=== PATIENT | female | born 1960 | race Caucasian/White ===

== ENCOUNTER → 2020-01-20 | Outpatient (CLI) | payer BC ==
--- NOTE | 2020-01-20 09:05 | BD ---
EXAMINATION TYPE: Axial Bone Density DATE OF EXAM: 01/20/2020 COMPARISON: NONE CLINICAL HISTORY: 59 YR OLD FEMALE...ICD-10 CODE: N95.1 POST MENOPAUSAL Height: 63.3 Weight: 367 FRAX RISK QUESTIONS: Glucocorticoids (More than 3mos): YES (Ex: prednisone, prednisolone, methylprednisolone, dexamethasone, and hydrocortisone). History of Fracture in Adulthood: YES Secondary Osteoporosis: YES 1. Type 1 Diabetes: YES 3. Menopause before 45: YES, AT 44 Current Tobacco Use: NOT FOR 10 YRS RISK FACTORS HISTORY OF: History of Wrist Fracture: HX OF RT WRIST FX....> AGE OF 51 Postmenopausal woman: YES, AT ABOUT 44 YRS OLD Take estrogen and/or progesterone medications: YES, FOR ABOUT 2-3 YRS IN THE PAST....NONE NOW Lost more than 2 inches in height since high school: YES Hyperparathyroidism: NO Adrenal Insufficiency: NO MEDICATIONS: Prednisone or other steroids: ASTHMA INHALERS, AND STEROIDS FOR ABOUT 10+ YRS Thyroid Medications: YES, ON AND OFF SYNTHROID, RIGHT NOW OFF, ON FOR YR TILL RECENTLY Additional Medications: BP MEDS, XANAX , CELEXA, INSULIN AND ORAL DIABETIC MEDS, REFLUX MEDS, VIT D Additional History: HYPERTENSION, DIABETIC, REFLUX, CHOLESTEROL BUT CANNOT TAKE MEDS, RT KNEE REPLACE MENT, OSTEOARTHRITIS, RENAL EXAM MEASUREMENTS: Bone mineral densitometry was performed using the [employer] System. Bone mineral density as measured about the Lumbar spine is: ----- L1-L4(G/cm2): 1.410 T Score Values are as follows: ----- L1: 1.9 ----- L2: 1.4 ----- L3: 1.6 ----- L4: 2.7 ----- L1-L4: 1.9 Bone mineral density FIRST DEXA SCAN......BASELINE STUDY Bone mineral density about the R hip (g/cm2): 0.923 Bone mineral density about the L hip (g/cm2): 0.938 T Score values are as follows: -----R Neck: -1.5 -----L Neck: -1.5 -----R Total: -0.7 -----L Total: -0.6 Bone mineral density BASELINE STUDY FRAX%s: THERE IS A 15.2% CHANCE FOR A MAJOR OSTEOPOROTIC FX AND A 1.3% FOR HIP.....PROBABILITY FOR FX IN 10 YRS TIME IMPRESSION: Osteopenia (T Score between -2.5 and -1) at the femoral neck level of both hips. There is slightly increased risk of fracture and the patient may be considered for treatment. Re-Screen 2-5 years. NOTE: T-SCORE=SD OF THE YOUNG ADULT MEAN.
--- NOTE | 2020-01-20 09:35 | MM ---
Reason for exam: screening (asymptomatic). Last mammogram was performed 7 years and 1 month ago. History: Patient is postmenopausal. Family history of premenopausal breast cancer in aunt at age 46 and premenopausal breast cancer in cousin at age 46. Took hormonal contraceptives for 2 months. Took estrogen for 4 years beginning at age 41. Physical Findings: A clinical breast exam by your physician is recommended on an annual basis and results should be correlated with mammographic findings. MG Screening Mammo w CAD Bilateral CC and MLO view(s) were taken. Prior study comparison: December 22, 2012, bilateral digital screening mammo w/CAD. January 25, 2011, [facility] DIGITAL RIGHT MAMMOGRAM w/CAD. There are scattered fibroglandular densities. Finding: There are indeterminate heterogeneous, grouped/clustered calcifications in the outer quadrant of the left breast 11cm from the nipple. New finding since December 22, 2012. ASSESSMENT: Incomplete: need additional imaging evaluation, BI-RAD 0 RECOMMENDATION: Special view mammogram of the left breast. [facility] will attempt to contact patient to return for supplemental views.
== END | disposition home or self-care (01) ==
LOC: RADMAMWWP 07:36
PROVIDERS: ATTEND Family Medicine
DX: Z12.31 Encounter for screening mammogram for malignant neoplasm of breast (principal); Z13.820 Encounter for screening for osteoporosis; M85.89 Other specified disorders of bone density and structure, multiple sites; N95.1 Menopausal and female climacteric states
CPT/HCPCS: 77067; 77080

== ENCOUNTER → 2020-02-01 | Outpatient (CLI) | payer BC ==
--- NOTE | 2020-02-02 07:14 | MM ---
Reason for exam: additional evaluation requested from abnormal screening. Last mammogram was performed less than 1 month ago. History: Patient is postmenopausal. Family history of premenopausal breast cancer in aunt at age 46 and premenopausal breast cancer in cousin at age 46. Took hormonal contraceptives for 2 months. Took estrogen for 4 years beginning at age 41. Physical Findings: Nurse did not find any significant physical abnormalities on exam. MG Work Up Mamm w CAD LT CC with magnification, ML with magnification, and ML view(s) were taken of the left breast. Prior study comparison: December 22, 2012, bilateral digital screening mammo w/CAD. January 25, 2011, [facility] DIGITAL RIGHT MAMMOGRAM w/CAD. There are scattered fibroglandular densities. Grouped course and heterogeneous calcifications posterior lower outer quadrant, new from 2010. Biopsy recommended. These results were verbally communicated with the patient and result sheet given to the patient on 02/01/20. ASSESSMENT: Suspicious, BI-RAD 4 RECOMMENDATION: Stereotactic core biopsy of the left breast. Given the patient's weight, likely will need upright 3D mammogram biopsy. Called Dr. Paredes's office with mammographic findings. PRELIMINARY REPORT CALLED AND FAXED TO DR. PAREDES ON 02/02/20.
== END | disposition home or self-care (01) ==
LOC: RADMAMWWP 08:41
PROVIDERS: ATTEND Family Medicine
DX: R92.8 Other abnormal and inconclusive findings on diagnostic imaging of breast (principal)
CPT/HCPCS: 77065

== ENCOUNTER → 2022-01-17 | Outpatient (CLI) | payer BC ==
--- NOTE | 2022-01-17 21:28 | SFUN ---
SLEEP CENTER FOLLOW UP NOTE DATE OF SERVICE: 01/17/2022 This 61-year-old lady has been followed in Sleep Center for treatment of obstructive sleep apnea-hypopnea syndrome. Recently the patient had BiPAP titration and she received a new BiPAP unit. Today is her first visit after she received the new BiPAP equipment. Previously the patient was also on treatment with oxygen. I discussed results of the sleep study with the patient in detail. Her respiration normalized on BiPAP, but she still had some episodes of oxygen desaturation during titration. During the night of titration, oxygen level was below normal range for 41 minutes. The patient is able to use her BiPAP equipment every night. I checked her BiPAP unit. Pressure is 17/12 cm of water. Usage is 100% of nights for more than 4 hours. Average usage is 13 hours 59 minutes. Patient explained that she is using her machine at night and also during the day when she takes naps in the middle of the day. [place] Sleepiness Scale today is 3. Reading from the machine showed leak 21.6 L/minute, which is borderline, and apnea- hypopnea index only 1.0, which is normal. MEDICATIONS: 1. Lisinopril 20 mg once a day. 2. Metformin 1000 mg twice a day. 3. Symbicort inhaler 2 puffs twice a day. 4. Ropinirole 0.5 mg at bedtime. 5. Xanax 0.25 mg three times a day. 6. Furosemide 40 mg twice a day. 7. Albuterol inhaler. 8. Singulair 10 mg at night. 9. Lantus insulin. PHYSICAL EXAMINATION: GENERAL: Pleasant patient in no distress. VITAL SIGNS: BP 174/97, HR 100, RR around 20, weight 419, temperature 97.5, oxygen saturation at room air in sitting position 92%. HEENT: PERRLA, EOMI, evaluation of oropharynx showed tongue protrudes midline. Extremely low position of soft palate; Mallampati IV. NECK: Supple, no JVD. Thyroid is not palpable. Neck measures 21-1/2 inches in circumference. LUNGS: Clear to percussion and to auscultation. Good air exchange. No wheezing or rhonchi. HEART: S1, S2 regular. No murmurs, gallops, or rubs. ABDOMEN: Obese. EXTREMITIES: No clubbing or cyanosis. WOOD ENGRAVER: Awake, alert, and oriented X3. Cranial nerves 2 to 7 intact. There is no fasciculation or atrophy. noted. No focal deficits observed. IMPRESSION: 1. Obstructive sleep apnea-hypopnea syndrome. Patient demonstrated 100% compliance with BiPAP treatment. Normal respiration by apnea-hypopnea index while using BiPAP. Apnea-hypopnea index 1.0. 2. Previously patient was on treatment with oxygen during sleep. During titration procedure, oxygen level was below normal for 41.1 minutes, possibly secondary to COPD and morbid obesity. 3. Morbid obesity. 4. Diabetes mellitus. 5. Asthma. 6. Anxiety. 7. Status post tonsillectomy. 8. Status post hysterectomy. 9. Status post right knee replacement. 10.Status post bilateral cataract surgery. PLAN: 1. Patient will continue treatment with BiPAP every night for the whole night. 2. Prescription for additional oxygen 2 L/minute during sleep with BiPAP. 3. Aggressive losing weight program. 4. Sleep hygiene with regular time in bed for at least 7-1/2 to 8 hours. 5. No driving if feeling any sleepiness. Thank you very much for allowing me to participate in the management of your patient. Sincerely, Gerard Walker MD, PhD, FAASM Diplomat of [place] [employer] Sleep Medicine Board of [place] [employer] Charging Board Operator of [facility] [place] [facility]OD[facility] / [place]: [id number] /
== END ==
LOC: SLEEP 13:32
PROVIDERS: ATTEND Internal Medicine
DX: G47.33 Obstructive sleep apnea (adult) (pediatric) (principal); Z99.89 Dependence on other enabling machines and devices; E66.01 Morbid (severe) obesity due to excess calories; J45.909 Unspecified asthma, uncomplicated; E11.9 Type 2 diabetes mellitus without complications; F41.9 Anxiety disorder, unspecified; Z90.09 Acquired absence of other part of head and neck; Z90.711 Acquired absence of uterus with remaining cervical stump; Z96.651 Presence of right artificial knee joint; Z98.41 Cataract extraction status, right eye; Z98.42 Cataract extraction status, left eye; Z79.4 Long term (current) use of insulin; Z79.84 Long term (current) use of oral hypoglycemic drugs; Z79.51 Long term (current) use of inhaled steroids; Z88.1 Allergy status to other antibiotic agents; Z88.5 Allergy status to narcotic agent; Z88.2 Allergy status to sulfonamides; Z88.8 Allergy status to other drugs, medicaments and biological substances

== ENCOUNTER → 2022-04-29 | Outpatient (CLI) | payer BC ==
--- NOTE | 2022-04-30 08:45 | XR ---
EXAMINATION TYPE: XR chest 2V DATE OF EXAM: 04/29/2022 COMPARISON: NONE TECHNIQUE: PA and lateral views submitted. HISTORY: Shortness of breath FINDINGS: The lungs are clear and there is no pneumothorax, pleural effusion, or focal pneumonia. Hypertrophi c change of the spine with cardiomegaly. Arthropathy of the shoulders. Subsegmental changes along the right lung. IMPRESSION: 1. Subsegmental changes along the right lung base could represent atelectasis or prominent pericardia l fat pad. Correlate clinically to exclude early infiltrate
== END | disposition home or self-care (01) ==
LOC: RADMRIMAIN 18:47
PROVIDERS: ATTEND Family Medicine
DX: R07.9 Chest pain, unspecified (principal)
CPT/HCPCS: 71046

== ENCOUNTER 2022-10-15 17:02 | Observation (INO) | payer BC ==
[2022-10-15] MEDS ORDERED: ASPIRIN 81 MG PO STA (17:06)
[2022-10-15 17:50] LABS: Basophils # (A) 0.1 k/uL (0-0.2); Basophils % (A) 1 %; Eosinophils # (A) 0.2 k/uL (0-0.7); Eosinophils % (A) 2 %; HCT 42.2 % (34.0-46.0); HGB 14.6 gm/dL (11.4-16.0); Lymphocytes # (A) 2.8 k/uL (1.0-4.8); Lymphocytes % (A) 28 %; MCH 32.5 pg (25.0-35.0); MCHC 34.7 g/dL (31.0-37.0); MCV 93.7 fL (80.0-100.0); Mean Platelet Volume 8.1; Monocytes # (A) 0.3 k/uL (0-1.0); Monocytes % (A) 3 %; Neutrophils # (A) 6.5 k/uL (1.3-7.7); Neutrophils % (A) 65 %; Platelet Count 269 k/uL (150-450); RDW 12.5 % (11.5-15.5)
[2022-10-15] MEDS ORDERED: PANTOPRAZOLE 40 MG/10 ML VIAL IVP STA (17:52)
[2022-10-15] MEDS ORDERED: FAMOTIDINE 20 MG/2 ML VIAL IV STA (17:52)
--- NOTE | 2022-10-15 18:02 | ED ---
Chest Pain HPI - General Chief Complaint: Chest Pain Stated Complaint: chest pain Time Seen by Provider: 10/15/22 17:05 Source: patient, EMS Mode of arrival: EMS Limitations: no limitations - History of Present Illness Initial Comments: Patient is a 62 year old female who went to the emergency department with a chief complaint of chest pain. Patient states the pain started at about 4 PM while watching TV. Describes the pain as intermittent episodes of sharpness and spasms in the middle of her chest. Patient had 4-5 episodes lasting just a few seconds. There is no radiation. The pain worsened with forward motion of the chest. Patient took 650 mg of aspirin. She had one episode of nausea otherwise no associated symptoms. = No lightheadedness, dizziness, palpitations, shortness of breath, vomiting. She does admit to cough and sore throat. She does mention eating gumbo for lunch today but denies history of acid reflux. She has history of hypertension, diabetes, heart failure. Reports having a normal stress test over 15 years ago. Does not recall any history of echocardiogram. 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 Family history of cardiac disease includes father with heart attack in his 60s and mother with valvular disease. Patient quit smoking tobacco 12 years ago. She denies alcohol use. Patient given nitro in the ambulance with no improvement of symptoms. - Related Data Home Medications Medication Instructions Recorded Confirmed ALPRAZolam [Xanax] 0.25 mg PO TID PRN 10/15/22 10/15/22 Albuterol Sulfate [Albuterol 2 puff INHALATION RT-Q6H PRN 10/15/22 10/15/22 Sulfate Hfa] Apple Cider Vinegar Gummy 1 cap PO PC-SUPPER 10/15/22 10/15/22 Budesonide/Formoterol Fumarate 2 puff INHALATION RT-BID 10/15/22 10/15/22 [Symbicort 160-4.5 Mcg Inhaler] Elderberry Gummy 2 cap PO PC-SUPPER 10/15/22 10/15/22 Furosemide [Lasix] 40 mg PO BID 10/15/22 10/15/22 Insulin Glargine,Hum.rec.anlog 32 unit SQ HS 10/15/22 10/15/22 [Lantus Solostar Pen] Montelukast [Singulair] 10 mg PO DAILY 10/15/22 10/15/22 Probiotic Gummy 2 cap PO PC-SUPPER 10/15/22 10/15/22 lisinopriL [Prinivil] 40 mg PO DAILY 10/15/22 10/15/22 metFORMIN HCL 500 mg PO BID 10/15/22 10/15/22 rOPINIRole HCL [Requip] 0.5 mg PO HS 10/15/22 10/15/22 Allergies Allergy/AdvReac Type Severity Reaction Status Date / Time ciprofloxacin [From Cipro] Allergy Unknown Verified 10/15/22 20:20 ciprofloxacin HCl Allergy Unknown Verified 10/15/22 20:20 [From Cipro] codeine Allergy Unknown Verified 10/15/22 20:20 sodium fluoride Allergy Unknown Verified 10/15/22 20:20 [From Phos-Flur] Sulfa (Sulfonamide Allergy Unknown Verified 10/15/22 20:20 Antibiotics) rosuvastatin [From Crestor] AdvReac Muscle Verified 10/15/22 20:20 cramps Review of Systems ROS Statement: Those systems with pertinent positive or pertinent negative responses have been documented in the HPI. ROS Other: All systems not noted in ROS Statement are negative. EKG Findings - EKG Comments: EKG Findings:: KG taken at 17:20, terminal by me. Sinus rhythm with first- degree AV block, no ST segment or T-wave abnormality. Ventricular rate 85. RI interval 220. QRS duration 103. QTc 413 Past Medical History Past Medical History: Heart Failure, Diabetes Mellitus, Hypertension, Thyroid Disorder History of Any Multi-Drug Resistant Organisms: None Reported Past Surgical History: Hysterectomy, Orthopedic Surgery, Tonsillectomy Past Psychological History: Anxiety, Depression Smoking Status: Never smoker Past Alcohol Use History: None Reported Past Drug Use History: None Reported General Exam Limitations: no limitations Head exam: Present: atraumatic, normocephalic, normal inspection Eye exam: Present: normal appearance, PERRL, EOMI. Absent: scleral icterus, conjunctival injection, periorbital swelling Neck exam: Present: normal inspection. Absent: tenderness, meningismus, lymphadenopathy Respiratory exam: Present: normal lung sounds bilaterally. Absent: respiratory distress, wheezes, rales, rhonchi, stridor Cardiovascular Exam: Present: regular rate, normal rhythm, normal heart sounds. Absent: systolic murmur, diastolic murmur, rubs, gallop, clicks GI/Abdominal exam: Present: soft, normal bowel sounds. Absent: distended, tenderness, guarding, rebound, rigid Extremities exam: Present: normal inspection, full ROM, normal capillary refill, pedal edema (1+) Neurological exam: Present: alert, oriented X3, CN II-XII intact Psychiatric exam: Present: normal affect, normal mood Skin exam: Present: warm, dry, intact, normal color. Absent: rash Course Vital Signs 10/15/22 10/15/22 10/15/22 17:10 18:14 20:04 Temperature 98.4 F Pulse Rate 89 80 76 Respiratory 18 18 18 Rate Blood Pressure 133/74 121/62 121/62 O2 Sat by Pulse 97 97 99 Oximetry Chest Pain MDM - MDM This is a 62-year-old presenting with chest pain. Patient well appearing and in no apparent distress. EKG obtained and interpreted by me which shows sinus rhythm with first-degree AV block, no ST segment or T-wave abnormality. Laboratory studies obtained. Troponin and BNP within normal limits. Chest x-ray obtained interpreted by me which shows cardiomegaly and mild pulmonary vascular congestion. Patient given Protonix and Pepcid. On reevaluation patient reports no further chest pain episodes. Results discussed with patient. Patient does have risk factors for acute coronary syndrome, will be placed in observation for trending of troponin. Case discussed with Dr. Heller who accepts admission. Cardiology on consult. Dr. Skinner is my attending. Disposition Clinical Impression: Chest pain, Nausea Disposition: ADMITTED IP TO THIS HOSP Condition: Stable
--- NOTE | 2022-10-15 18:03 | XR ---
EXAMINATION TYPE: XR chest 2V DATE OF EXAM: 10/15/2022 5:47 PM COMPARISON: Chest radiographs from 04/29/2022 TECHNIQUE: XR chest 2V Frontal and lateral views of the chest. CLINICAL INDICATION:Female, 62 years old with history of Chest Pain; FINDINGS: Lungs/Pleura: There is no evidence of pleural effusion, focal consolidation, or pneumothorax. Pulmonary vascularity: Pulmonary vascular congestion. Heart/mediastinum: Cardiomediastinal silhouette is enlarged and stable. Musculoskeletal: No acute osseous pathology. IMPRESSION: Cardiomegaly and mild pulmonary vascular congestion. Correlate with BNP for congestive heart failure.
[2022-10-15 18:05] LABS: INR 0.9 (<1.2)
[2022-10-15 18:07] LABS: Partial Thromboplastin Time 20.3 sec (22.0-30.0)
[2022-10-15 18:08] LABS: ALT 30 U/L (4-34); AST 40 U/L (14-36); African American GFR (CKD) >90 (>60 ml/min/1.73 sqM); Albumin 3.9 g/dL (3.5-5.0); Alkaline Phosphatase 128 U/L (38-126); Anion Gap 10 mmol/L; Blood Urea Nitrogen 18 mg/dL (7-17); Calcium 9.3 mg/dL (8.4-10.2); Carbon Dioxide 28 mmol/L (22-30); Chloride 104 mmol/L (98-107); Glucose 124 mg/dL (74-99); Magnesium 1.9 mg/dL (1.6-2.3); Non-African American GFR(CKD) >90 (>60 ml/min/1.73 sqM); Potassium 3.9 mmol/L (3.5-5.1); Sodium 142 mmol/L (137-145); Total Bilirubin 0.3 mg/dL (0.2-1.3); Total Protein 7.1 g/dL (6.3-8.2)
[2022-10-15] MEDS ORDERED: BENZOCAINE/MENTHOL LOZENG 1 EACH LOZENGE MUCOUS MEM PRN (18:28)
[2022-10-15] MEDS ORDERED: BENZOCAINE/MENTHOL LOZENG 1 EACH LOZENGE MUCOUS MEM STA (18:38)
[2022-10-15] MEDS ORDERED: NALOXONE 0.4 MG/ML 1 ML VIAL IV PRN (19:47)
[2022-10-15] MEDS ORDERED: ALPRAZolam 0.25 MG TAB PO PRN (21:05)
[2022-10-15] MEDS ORDERED: ALBUTEROL NEBULIZED 2.5 MG/3 ML INHALATION PRN (21:05)
[2022-10-15] MEDS: SODIUM CHLORIDE 0.9% 1,000 ML IV SCH (21:07)
[2022-10-15] MEDS ORDERED: INSULIN DETEMIR (LEVEMIR) 100 UNIT/ML SYR SQ SCH (21:15)
[2022-10-15 21:33] LABS: Glucose,Whole Blood 130 mg/dL (70-110)
[2022-10-15] MEDS: metFORMIN 500 MG TAB PO SCH (21:38)
[2022-10-16 05:10] LABS: Glucose,Whole Blood 128 mg/dL (70-110)
[2022-10-16] MEDS ORDERED: SYMBICORT 160-4.5 MCG INHALER INHALATION SCH (08:00)
[2022-10-16] MEDS ORDERED: DOBUTamine DRIP for NUC MED 500 MG in DEXTROSE/WATER 1 250ML.BAG IV PRN (08:14)
[2022-10-16] MEDS ORDERED: DEXTROSE 50% SYRINGE 50 ML IVP PRN ×2 (08:49)
--- NOTE | 2022-10-16 08:49 | P.HPIM ---
History of Present Illness H&P Date: 10/16/22 Chief Complaint: Chest pain with shortness of breath. This is a 62-year-old white female with the complaints of significant chest pain yesterday had no radiation but there is element of substernal pain. Question some nausea but no diaphoresis stated. She's not had symptoms like this. Mother with valvular heart disease who at age 79 and she is a nonsmoker. She denies any significant ethanol or substance abuse. Initial enzymatic workup is negative. Lamp Replacer consulted. Review of Systems Constitutional: Denies chills, Denies fever Eyes: denies blurred vision, denies pain Ears, nose, mouth and throat: Denies headache, Denies sore throat Cardiovascular: Reports as per HPI Respiratory: Denies cough Gastrointestinal: Denies abdominal pain, Denies diarrhea, Denies nausea, Denies vomiting Genitourinary: Reports as per HPI Integumentary: Denies pruritus, Denies rash Neurological: Denies numbness, Denies weakness Past Medical History Past Medical History: Heart Failure, Diabetes Mellitus, Hypertension, Thyroid Disorder History of Any Multi-Drug Resistant Organisms: None Reported Past Surgical History: Hysterectomy, Orthopedic Surgery, Tonsillectomy Additional Past Surgical History / Comment(s): cataract sx both eyes Past Psychological History: Anxiety, Depression Smoking Status: Never smoker Past Alcohol Use History: None Reported Past Drug Use History: None Reported Medications and Allergies Home Medications Medication Instructions Recorded Confirmed Type ALPRAZolam [Xanax] 0.25 mg PO TID PRN 10/15/22 10/15/22 History Albuterol Sulfate [Albuterol 2 puff INHALATION RT-Q6H PRN 10/15/22 10/15/22 History Sulfate Hfa] Apple Cider Vinegar Gummy 1 cap PO PC-SUPPER 10/15/22 10/15/22 History Budesonide/Formoterol Fumarate 2 puff INHALATION RT-BID 10/15/22 10/15/22 History [Symbicort 160-4.5 Mcg Inhaler] Elderberry Gummy 2 cap PO PC-SUPPER 10/15/22 10/15/22 History Furosemide [Lasix] 40 mg PO BID 10/15/22 10/15/22 History Insulin Glargine,Hum.rec.anlog 32 unit SQ HS 10/15/22 10/15/22 History [Lantus Solostar Pen] Montelukast [Singulair] 10 mg PO DAILY 10/15/22 10/15/22 History Probiotic Gummy 2 cap PO PC-SUPPER 10/15/22 10/15/22 History lisinopriL [Prinivil] 40 mg PO DAILY 10/15/22 10/15/22 History metFORMIN HCL 500 mg PO BID 10/15/22 10/15/22 History rOPINIRole HCL [Requip] 0.5 mg PO HS 10/15/22 10/15/22 History Allergies Allergy/AdvReac Type Severity Reaction Status Date / Time ciprofloxacin [From Cipro] Allergy Unknown Verified 10/15/22 20:20 ciprofloxacin HCl Allergy Unknown Verified 10/15/22 20:20 [From Cipro] codeine Allergy Unknown Verified 10/15/22 20:20 sodium fluoride Allergy Unknown Verified 10/15/22 20:20 [From Phos-Flur] Sulfa (Sulfonamide Allergy Unknown Verified 10/15/22 20:20 Antibiotics) rosuvastatin [From Crestor] AdvReac Muscle Verified 10/15/22 20:20 cramps Physical Exam Vitals: Vital Signs Temp Pulse Pulse Resp BP BP Pulse Ox 10/16/22 08:19 95 10/16/22 02:12 97.5 F L 72 20 134/66 95 10/15/22 21:30 98.0 F 85 19 113/74 97 10/15/22 20:04 76 18 121/62 99 10/15/22 20:00 18 10/15/22 18:14 80 18 121/62 97 10/15/22 17:10 98.4 F 89 18 133/74 97 Intake and Output 10/15/22 10/16/22 10/16/22 22:59 06:59 14:59 Other: # Voids 1 1 Weight 183.705 kg - Constitutional General appearance: morbidly obese, no acute distress - EENT Eyes: EOMI - Neck Neck: no lymphadenopathy - Respiratory Respiratory: bilateral: CTA - Cardiovascular Rhythm: regular Heart sounds: normal: S1, S2 Abnormal Heart Sounds: no S3 Gallop - Gastrointestinal General gastrointestinal: soft, no tenderness - Integumentary Integumentary: no cellulitis - Psychiatric Psychiatric: A&O x's 3 Results CBC & Chem 7: 10/15/22 17:33 10/15/22 17:33 Labs: Abnormal Lab Results - Last 24 Hours (Table) 10/15/22 10/15/22 10/15/22 Range/Units 17:33 17:33 21:32 APTT 20.3 L (22.0-30.0) sec BUN 18 H (7-17) mg/dL Glucose 124 H (74-99) mg/dL POC Glucose (mg/dL) 130 H (70-110) mg/dL AST 40 H (14-36) U/L Alkaline Phosphatase 128 H (38-126) U/L 10/16/22 Range/Units 05:09 APTT (22.0-30.0) sec BUN (7-17) mg/dL Glucose (74-99) mg/dL POC Glucose (mg/dL) 128 H (70-110) mg/dL AST (14-36) U/L Alkaline Phosphatase (38-126) U/L Thrombosis Risk Factor Assmnt - Choose All That Apply Each Risk Factor Represents 2 Points: Age 61-74 years Thrombosis Risk Factor Assessment Total Risk Factor Score: 2 Thrombosis Risk Factor Assessment Level: Low Risk Assessment and Plan (1) Diabetes Current Visit: Yes Status: Acute Code(s): E11.9 - TYPE 2 DIABETES MELLITUS WITHOUT COMPLICATIONS SNOMED Code(s): 10333813 (2) Morbid obesity Current Visit: Yes Status: Acute Code(s): E66.01 - MORBID (SEVERE) OBESITY DUE TO EXCESS CALORIES SNOMED Code(s): 551422645 (3) Chest pain Current Visit: Yes Status: Acute Code(s): R07.9 - CHEST PAIN, UNSPECIFIED SNOMED Code(s): 67090483 (4) Nausea Current Visit: Yes Status: Acute Code(s): R11.0 - NAUSEA SNOMED Code(s): 883457383 Plan: Acute myocardial infarction ruled out. However given her anginal type symptoms she is scheduled for dobutamine stress test today. Reconcile home medications. Place on sliding scale. See orders otherwise.
[2022-10-16] MEDS ORDERED: metFORMIN 500 MG TAB PO SCH (09:00)
[2022-10-16] MEDS ORDERED: lisinopriL 20 MG TAB PO SCH (09:00)
[2022-10-16] MEDS ORDERED: MONTELUKAST 10 MG TAB PO SCH (09:00)
[2022-10-16 09:06] VITALS: RESP 16
[2022-10-16] MEDS: metFORMIN 500 MG TAB PO SCH (09:48)
[2022-10-16] MEDS: FUROSEMIDE 40 MG TAB PO SCH ×2 (09:48→17:33)
--- NOTE | 2022-10-16 10:59 | P.CRDCN ---
History of Present Illness Consult date: 10/16/22 Consult reason: chest pain History of present illness: History of present illness: This is a 62-year-old female patient with past medical history of hypertension, diabetes mellitus type 2 insulin requiring, obstructive sleep apnea compliant with BiPAP. Patient states that she had developed chest pain in the center midsternal area that felt like a twinge. It lasted only briefly and occurred every 5-10 minutes and gradually increasing in intensity until it felt like a thumping in her chest. She had 5 episodes and a half hour time frame. She told her son and he brought her to aspirin which she took. She then called EMS and came into the hospital for evaluation. She denies having any radiation of the pain, no lightheadedness or dizziness. No palpitations. She did have a little bit of nausea at first which seemed to resolve. She also felt like she was having a bit of a panic attack. She complains also of cold-like symptoms with nasal congestion, sore throat and a cough that is now productive. She also states when she sits forward or chest hurts more. She has history of having a stress test done before 2009 which was required prior to knee surgery. 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 She is concerned because her father at age 66 from a myocardial infarction. EKG is sinus rhythm with first-degree AV block CBC unremarkable. Electrolytes normal. BUN 18 and creatinine 0.71. Alkaline phosphatase 128, AST 40. Troponin negative on 3 draws. ProBNP 22.Coronavirus PCR, influenza A, influenza B all not detected. Chest x-ray reveals cardiomegaly and mild pulmonary vascular congestion. Correlate BNP for heart failure. Review Of Systems: At the time of my evaluation Constitutional: No fever, no chills. No weakness, fatigue or lethargy. EENT: No headache. No dizziness. Lungs: No shortness of breath, reports cough, reports sputum production. Reports nasal congestion, sore throat. No wheezing. Cardiovascular: No chest pain, no lower extremity edema. No palpitations. No paroxysmal nocturnal dyspnea. No orthopnea. No lightheadedness or dizziness. No syncopal episodes. Abdominal: No abdominal pain. No nausea, vomiting. No diarrhea. No constipation. No bloody or tarry stools.. No loss of appetite. Genitourinary: No dysuria.. No urinary retention. Musculoskeletal: No myalgias. No muscle weakness, no gait dysfunction, no frequent falls. No back pain. No neck pain. Integumentary: No wounds. No rash or pruritus. No unusual bruising. Neurologic: No aphasia. No facial droop. No change in mentation. No head injury. No headache. No paralysis. No paresthesia. Psychiatric: No depression. No anxiety. Endocrine: No abnormal blood sugars. Physical examination: Gen: This is a morbidly obese 62-year-old female. She is resting recliner and appears to be comfortable. Patient was utilizing her BiPAP at bedside removal for evaluation. VS: reviewed HEENT: Head is atraumatic, normocephalic. Pupils equal, round. Sclerae is anicteric. NECK: Supple. No JVD. LUNGS: Clear to auscultation. No wheezes or rhonchi. No intercostal retractions. HEART: Regular rate and rhythm. No murmur. ABDOMEN: Soft. No masses. No tenderness. EXTREMITIES: No pedal edema. No calf tenderness. NEUROLOGICAL: Patient is awake, alert and oriented x3. Assessment: Chest pain, acute coronary syndrome ruled out Hypertension Diabetes mellitus type 2 Obstructive sleep apnea with BiPAP Plan: Obtain dobutamine stress echocardiogram today Obtain 2-D echocardiogram and Doppler study to assess cardiac structure and function Continue Lasix, lisinopril Further recommendations to follow based upon clinical course If dobutamine stress echocardiogram and 2-D echocardiogram are within normal limits, patient will be cleared by cardiology for discharge home. Thank you kindly for this consultation. Nurse practitioner note has been reviewed, I agree with documented findings and plan of care. Patient was seen and examined. Past Medical History Past Medical History: Heart Failure, Diabetes Mellitus, Hypertension, Thyroid Disorder History of Any Multi-Drug Resistant Organisms: None Reported Past Surgical History: Hysterectomy, Orthopedic Surgery, Tonsillectomy Additional Past Surgical History / Comment(s): cataract sx both eyes Past Psychological History: Anxiety, Depression Smoking Status: Never smoker Past Alcohol Use History: None Reported Past Drug Use History: None Reported Medications and Allergies Home Medications Medication Instructions Recorded Confirmed Type ALPRAZolam [Xanax] 0.25 mg PO TID PRN 10/15/22 10/15/22 History Albuterol Sulfate [Albuterol 2 puff INHALATION RT-Q6H PRN 10/15/22 10/15/22 History Sulfate Hfa] Apple Cider Vinegar Gummy 1 cap PO PC-SUPPER 10/15/22 10/15/22 History Budesonide/Formoterol Fumarate 2 puff INHALATION RT-BID 10/15/22 10/15/22 History [Symbicort 160-4.5 Mcg Inhaler] Elderberry Gummy 2 cap PO PC-SUPPER 10/15/22 10/15/22 History Furosemide [Lasix] 40 mg PO BID 10/15/22 10/15/22 History Insulin Glargine,Hum.rec.anlog 32 unit SQ HS 10/15/22 10/15/22 History [Lantus Solostar Pen] Montelukast [Singulair] 10 mg PO DAILY 10/15/22 10/15/22 History Probiotic Gummy 2 cap PO PC-SUPPER 10/15/22 10/15/22 History lisinopriL [Prinivil] 40 mg PO DAILY 10/15/22 10/15/22 History metFORMIN HCL 500 mg PO BID 10/15/22 10/15/22 History rOPINIRole HCL [Requip] 0.5 mg PO HS 10/15/22 10/15/22 History Allergies Allergy/AdvReac Type Severity Reaction Status Date / Time ciprofloxacin [From Cipro] Allergy Unknown Verified 10/15/22 20:20 ciprofloxacin HCl Allergy Unknown Verified 10/15/22 20:20 [From Cipro] codeine Allergy Unknown Verified 10/15/22 20:20 sodium fluoride Allergy Unknown Verified 10/15/22 20:20 [From Phos-Flur] Sulfa (Sulfonamide Allergy Unknown Verified 10/15/22 20:20 Antibiotics) rosuvastatin [From Crestor] AdvReac Muscle Verified 10/15/22 20:20 cramps Physical Exam Vitals: Vital Signs Temp Pulse Pulse Resp BP BP Pulse Ox 10/16/22 02:12 97.5 F L 72 20 134/66 95 10/15/22 21:30 98.0 F 85 19 113/74 97 10/15/22 20:04 76 18 121/62 99 10/15/22 20:00 18 10/15/22 18:14 80 18 121/62 97 10/15/22 17:10 98.4 F 89 18 133/74 97 Intake and Output 10/15/22 10/16/22 10/16/22 22:59 06:59 14:59 Other: # Voids 1 1 Weight 183.705 kg Results 10/15/22 17:33 10/15/22 17:33 Cardiac Enzymes 10/15/22 10/15/22 10/15/22 Range/Units 17:33 17:33 23:00 AST 40 H (14-36) U/L Troponin I <0.012 <0.012 (0.000-0.034) ng/mL 10/16/22 Range/Units 01:13 AST (14-36) U/L Troponin I <0.012 (0.000-0.034) ng/mL Coagulation 10/15/22 Range/Units 17:33 PT 10.0 (9.0-12.0) sec APTT 20.3 L (22.0-30.0) sec CBC 10/15/22 Range/Units 17:33 WBC 10.0 (3.8-10.6) k/uL RBC 4.50 (3.80-5.40) m/uL Hgb 14.6 (11.4-16.0) gm/dL Hct 42.2 (34.0-46.0) % Plt Count 269 (150-450) k/uL Comprehensive Metabolic Panel 10/15/22 Range/Units 17:33 Sodium 142 (137-145) mmol/L Potassium 3.9 (3.5-5.1) mmol/L Chloride 104 (98-107) mmol/L Carbon Dioxide 28 (22-30) mmol/L BUN 18 H (7-17) mg/dL Creatinine 0.71 (0.52-1.04) mg/dL Glucose 124 H (74-99) mg/dL Calcium 9.3 (8.4-10.2) mg/dL AST 40 H (14-36) U/L ALT 30 (4-34) U/L Alkaline Phosphatase 128 H (38-126) U/L Total Protein 7.1 (6.3-8.2) g/dL Albumin 3.9 (3.5-5.0) g/dL Current Medications Generic Name Dose Route Start Last Admin Trade Name Freq PRN Reason Stop Dose Admin Albuterol Sulfate 2.5 mg 10/15/22 21:05 Albuterol Nebulized 2.5 Mg/3 Ml INHALATION RT-Q6H PRN Shortness Of Breath Alprazolam 0.25 mg 10/15/22 21:05 10/15/22 21:37 Alprazolam 0.25 Mg Tab PO 0.25 mg TID PRN Administration Anxiety Budesonide/Formoterol Fumarate 2 puff 10/16/22 08:00 Symbicort 160-4.5 Mcg Inhaler INHALATION RT-BID BALJIT Furosemide 40 mg 10/16/22 09:00 Furosemide 40 Mg Tab PO BID@0900,1600 [facility] Sodium Chloride 1,000 mls @ 75 mls/hr 10/15/22 20:00 10/15/22 21:07 Saline 0.9% IV Not Given .[id number] BALJIT Insulin Detemir 32 unit 10/15/22 21:15 12 21:38 Insulin Detemir (Levemir) 100 Unit/Ml Syr SQ 32 unit HS BALJIT Administration Lisinopril 40 mg 10/16/22 09:00 Lisinopril 20 Mg Tab PO DAILY BALJIT Metformin HCl 500 mg 10/15/22 21:16 10/15/22 21:38 Metformin 500 Mg Tab PO 500 mg BID BALJIT Administration Montelukast Sodium 10 mg 10/16/22 09:00 Montelukast 10 Mg Tab PO DAILY BALJIT Naloxone HCl 0.2 mg 10/15/22 19:47 Naloxone 0.4 Mg/Ml 1 Ml Vial IV Q2M PRN Opioid Reversal Ropinirole HCl 0.5 mg 10/15/22 21:30 10/15/22 21:37 Ropinirole Hcl 0.25 Mg Tab PO 0.5 mg HS BALJIT Administration Intake and Output 10/15/22 10/16/22 10/16/22 22:59 06:59 14:59 Other: # Voids 1 1 Weight 183.705 kg 10/15/22 17:33 10/15/22 17:33
[2022-10-16] MEDS ORDERED: DOBUTamine DRIP for NUC MED 500 MG/250 ML BAG IV ONE (14:06)
[2022-10-16] MEDS: SODIUM CHLORIDE 0.9% 1,000 ML IV SCH (14:45)
[2022-10-16 15:29] VITALS: BP 126/77; PULSE 85; TEMP 99.4
[2022-10-16] MEDS ORDERED: ACETAMINOPHEN TAB 325 MG TAB PO PRN (15:31)
[2022-10-16 17:10] LABS: Glucose,Whole Blood 135 mg/dL (70-110)
--- NOTE | 2022-10-16 17:38 | CA ---
Dobutamine Stress Echocardiogram Report Janeth Asif Age: 62 Gender: F : 1960 Exam Date: 10/16/2022 13:41 Exam Location: [place] Echo Ordering Physician: Tiny Chase Referring Physician: Rena BERRIOS Scientific Programmer: LIZ Technologist: Ht (in): 64 Wt (lb): 405 Procedure CPT: Indication: CP ICD-9 Codes: Rhythm: Patient History: Cardiac Medications: SEE CHART Medications in past 24 hours: Contrast: Total Dose (mL): Stress Results Protocol: Dobutamine Peak Dose (???g/kg/min): Duration (min:sec): Atropine:(mg) Target HR: 135 Double Product: 02994 Resting HR: 81 Resting BP: 156 / 82 Peak HR: 141 Peak BP: 213 / 50 Max Predicted HR: 159 89 % Max Predicted HR Stress Summary: BP Response: Reason for Termination: Exceeded target heart rate (85% max predicted) Cardiac Symptoms: NO SYMPTOMS ECG Analysis Resting EKG: Normal sinus rhythm normal axis normal intervals Stress EKG: Patient was given intravenous dobutamine or a period of 8 minutes as per protocol achieving 89% of predicted maximal heart rate without chest pain or diagnostic ST segment depression Arrhythmia: Echo Analysis Base Echo Analysis: Normal left ventricular size wall motion systolic function Low Echo Anaylsis: Normal response Peak Echo Analysis: Normal hyperdynamic response Recovery Echo: Normal MEASUREMENTS (Male/Female) Normal Values CONCLUSIONS Negative dobutamine stress echo Dr. Martin Kenney MD (Electronically Signed) Final Date: 16 October 2022 17:37
--- NOTE | 2022-10-16 17:40 | CA ---
Transthoracic Echo Report Name: Janeth Asif Age: 62 Gender: F : 1960 Exam Date: 10/16/2022 14:14 Exam Location: [place] [facility] Ht (in): 64 Wt (lb): 405 Ordering Physician: Tiny Chase Attending/Referring Phys: [id number], Rena Financial Management Consultant Sierra Hunt RDCS Procedure CPT: Indications: LVF Cardiac Hx: Technical Quality: Very technically difficult study Contrast 1: Lumason Total Dose (mL): 4 Contrast 2: Total Dose (mL): MEASUREMENTS (Male / Female) Normal Values 2D ECHO LA Volume 36.8 cm??? 18 - 58 / 22 - 52 cm??? DOPPLER AV Peak Velocity 162.8 cm/s AV Peak Gradient 10.6 mmHg AV Mean Velocity 135.1 cm/s AV Mean Gradient 7.7 mmHg AV Velocity Time Integral 31.4 cm MV Area PHT 4.4 cm??? Mitral E Point Velocity 114.9 cm/s Mitral A Point Velocity 150.9 cm/s Mitral E to A Ratio 0.8 MV Deceleration Time 174.2 ms FINDINGS Left Ventricle Left ventricular ejection fraction is estimated at 50-55 %. Left ventricle not well visualized. Moderately increased left ventricular wall thickness. Right Ventricle Right ventricle not well visualized. Right Atrium Right atrium not well visualized. Left Atrium Normal left atrial size. Mitral Valve Mitral valve not well visualized. No mitral stenosis, regurgitation or prolapse. Aortic Valve Aortic valve not well visualized. No aortic stenosis. No aortic regurgitation. Tricuspid Valve Tricuspid valve not well visualized. Pulmonic Valve Pulmonic valve not well visualized. Pericardium No pericardial effusion. Aorta Aortic root and proximal ascending aorta not well visualized. CONCLUSIONS Technically suboptimal study secondary to poor echo windows Normal LV function Previewed by: Dr. Martin Kenney MD (Electronically Signed) Final Date: 16 October 2022 17:39
[2022-10-16] MEDS ORDERED: INSULIN DETEMIR (LEVEMIR) 100 UNIT/ML SYR SQ SCH (21:00)
== END 2022-10-16 18:45 | disposition home or self-care (01) ==
LOC: EC 17:02 → 6NMEDSUR 19:49
PROVIDERS: ADMIT Family Medicine; ATTEND Family Medicine
DX: R07.89 Other chest pain (principal); R11.0 Nausea; E11.9 Type 2 diabetes mellitus without complications; I11.0 Hypertensive heart disease with heart failure; I50.9 Heart failure, unspecified; F32.A Depression, unspecified; F41.9 Anxiety disorder, unspecified; E07.9 Disorder of thyroid, unspecified; G47.33 Obstructive sleep apnea (adult) (pediatric); E66.01 Morbid (severe) obesity due to excess calories; Z87.891 Personal history of nicotine dependence; Z82.49 Family history of ischemic heart disease and other diseases of the circulatory system; Z79.899 Other long term (current) drug therapy; Z79.51 Long term (current) use of inhaled steroids; Z79.84 Long term (current) use of oral hypoglycemic drugs; Z79.4 Long term (current) use of insulin; Z88.1 Allergy status to other antibiotic agents; Z88.5 Allergy status to narcotic agent; Z88.2 Allergy status to sulfonamides; Z20.822 Contact with and (suspected) exposure to COVID-19
CPT/HCPCS: 96372; 96374; 96375; 99285; 36415; 94640 ×2; 94760; 93005; 93306; 93351; 83880; 80053; 83735; 84484 ×2; 85025; 85610; 85730; 87502; 83036; 87635; 71046; G0378 ×2; C9113; Q9950